=== PATIENT | female | born 1995 | race African-American/Black ===

== ENCOUNTER 2017-03-27 12:12 | Emergency (ER) | payer OTHER ==
[~2017-03-27] VITALS: Ht 172.7 cm; Wt 136.1 kg
[~2017-03-27 12:12] MED LIST: AUGMENTIN 875875 MG PO; EC-NAPROSYN500 M1 PO; IBUPROFEN 600600 M1 PO; NOHOMEMEDICATIONS; PREDNISONE 20 M20 MG PO
[2017-03-27 12:13] VITALS: BP 135/61
== END 2017-03-27 13:46 | disposition home or self-care (01) ==
LOC: ER 12:12
DX: S09.90XA Unspecified injury of head, initial encounter (principal); W20.8XXA Other cause of strike by thrown, projected or falling object, initial encounter; Y93.89 Activity, other specified; Y92.89 Other specified places as the place of occurrence of the external cause; Y99.0 Civilian activity done for income or pay

== ENCOUNTER 2021-05-29 04:01 | Emergency (ER) | payer BC, OTHER ==
[~2021-05-29] VITALS: Ht 172.7 cm; Wt 117.9 kg
[2021-05-29 04:09] VITALS: BP 178/93
[2021-05-29] MEDS ORDERED: AMOXICILLIN 50500 M1 PO (04:40)
== END 2021-05-29 05:00 | disposition home or self-care (01) ==
LOC: ER 04:01
DX: J02.0 Streptococcal pharyngitis (principal)